=== PATIENT | female | born 1960 | race Caucasian/White ===

== ENCOUNTER 2019-03-13 14:20 | Emergency (ER) | payer OTHER ==
[~2019-03-13] VITALS: Ht 157.5 cm; Wt 66.0 kg
[2019-03-13 14:25] VITALS: Ht 157.5 cm; Wt 66.0 kg
[2019-03-13 15:04] VITALS: BP 139/96
== END 2019-03-13 15:04 | disposition home or self-care (01) ==
LOC: ED 14:20
DX: R21 Rash and other nonspecific skin eruption (principal); I10 Essential (primary) hypertension; Z90.49 Acquired absence of other specified parts of digestive tract; Z98.51 Tubal ligation status